=== PATIENT | female | born 1995 | race Caucasian/White ===

== ENCOUNTER 2018-07-13 08:49 | Observation (INO) | payer BC ==
[~2018-07-13] VITALS: Wt 72.7 kg
[2018-07-13] MEDS ORDERED: CONCERTA36 MG PO (09:07)
[2018-07-13 09:22] LABS: BASO # 0.1 (0.0-0.2); BASO % 0.6 % (0.0-2.0); EOS % 0.1 % (0-4.0); GRAN # 5.8 (1.4-6.5); GRAN % 69.5 % (42.2-75.2); HEMOGLOBIN 14.1 g/dl (12.5-16.0); LYMPH # 1.9 (1.2-3.4); LYMPH % 22.5 % (20.0-51.0); MEAN CELL VOLUME 88 fl (80.0-100.0); MEAN CORPUSCULAR HEMOGLOBIN 30 pg (27.0-31.0); MEAN CORPUSCULAR HGB CONC 34 g/dl (33.0-37.0); MEAN PLATELET VOLUME 10.2 fl (7.4-10.4); MONO # 0.6 (0.1-0.6); MONO % 7.1 % (1.7-9.3); PLATELET COUNT 241 K/mm3 (130-400); RED BLOOD COUNT 4.78 M/mm3 (4.10-5.30); REDCELL DISTRIBUTION WIDTH-CV 11.9 % (11.5-14.5)
[2018-07-13 09:32] LABS: ALBUMIN 4.8 gm/dL (3.5-5.0); BILIRUBIN,TOTAL 1.9 mg/dL (0.0-1.0); CALCIUM 9.8 mg/dL (8.4-10.2); CREATININE, serum 0.74 mg/dL (0.52-1.25); PHOSPHOROUS 1.2 mg/dL (2.5-4.5); POTASSIUM 3.5 mmol/L (3.4-5.0); TOTAL PROTEIN 8.2 gm/dL (6.4-8.2)
[2018-07-13 09:37] LABS: COLLECTION METHOD CLEAN CATCH
[2018-07-13 09:43] LABS: TROPONIN-I 0.029 ng/mL (0.000-0.034)
[2018-07-13 09:55] LABS: HYALINE CAST >12 /lpf; MUCOUS Present /lpf; PH 6 (5-8); URINE APPEARANCE Hazy; URINE BACTERIA Rare /hpf; URINE BILIRUBIN Negative (NEGATIVE); URINE BLOOD 2+ (NEGATIVE); URINE COLOR Yellow; URINE GLUCOSE Negative (NEGATIVE); URINE KETONE Trace (NEGATIVE); URINE LEUKOCYTE ESTERASE Negative (NEGATIVE); URINE NITRATE Negative (NEGATIVE); URINE PROTEIN(semi-quant) 2+ (NEGATIVE); URINE UROBILINOGEN Negative (NEGATIVE)
[2018-07-13 10:02] LABS: THYROID STIMULATING HORMONE 4.85 uIU/mL (0.465-4.680)
--- NOTE | 2018-07-13 15:53 | NUR ---
Patient arrived to floor at 1500. Alert, oriented, cooperative. Rates chest pain as a "1" at this time, described at "tightness."
[2018-07-13 16:00] VITALS: BP 125/75; PULSE 78; TEMP 98.8
[2018-07-13 16:06] VITALS: BP 125/75; PULSE 78; TEMP 98.8
--- NOTE | 2018-07-13 18:11 | NUR ---
Patient sitting up in bed eatting dinner at this time. Voices no needs or concerns. Continues to deny having pain and discomfort, including to chest.
[2018-07-13 19:03] VITALS: BP 134/74; PULSE 94; TEMP 98.4
--- NOTE | 2018-07-13 22:24 | NUR ---
Resting in bed with friends at bedside. Assessment complete. Alert and orientated. Lungs clear. Heart sounds normal. Pulses strong throughout. Reports IV in left AC painful. Site does not have an infiltration or phlebitis. Moved to left hand at patient request. Denies other needs at this time. Call light in reach.
[2018-07-13 23:48] VITALS: BP 130/76; PULSE 74; TEMP 98.8
[2018-07-14 03:49] VITALS: BP 118/68; PULSE 96; TEMP 97.2
--- NOTE | 2018-07-14 04:31 | NUR ---
Resting in bed with mother at bedside. denies needs. Call light in reach.
[2018-07-14 05:21] VITALS: BP 126/78; PULSE 84
--- NOTE | 2018-07-14 05:30 | NUR ---
Reports chest pain, 3/10 lower sternum. VS stable. No changes on telemetry. Keri notified if EKG wanted. No EKG at this time. Provided patient with PRN norco. Educated patient to inform if sx change or get worse. Denies other needs at this time. Will monitor.
[2018-07-14 06:17] LABS: BASO % 0.6 % (0.0-2.0); EOS # 0.1 (0.0-0.7); EOS % 0.9 % (0-4.0); GRAN # 3.5 (1.4-6.5); GRAN % 50.6 % (42.2-75.2); HEMATOCRIT 39.1 % (37.0-47.0); LYMPH # 2.6 (1.2-3.4); LYMPH % 38.5 % (20.0-51.0); MEAN CELL VOLUME 89 fl (80.0-100.0); MEAN CORPUSCULAR HEMOGLOBIN 30 pg (27.0-31.0); MEAN CORPUSCULAR HGB CONC 33 g/dl (33.0-37.0); MEAN PLATELET VOLUME 10.8 fl (7.4-10.4); MONO # 0.6 (0.1-0.6); MONO % 9.1 % (1.7-9.3); PLATELET COUNT 211 K/mm3 (130-400); RED BLOOD COUNT 4.41 M/mm3 (4.10-5.30); REDCELL DISTRIBUTION WIDTH-CV 11.8 % (11.5-14.5)
--- NOTE | 2018-07-14 06:28 | NUR ---
Resting in bed with mother at bedside. Reports norco improved chest pain. Otherwise uneventful night. Denies needs at this time.
[2018-07-14 06:31] LABS: BILIRUBIN,TOTAL 2.2 mg/dL (0.0-1.0); CALCIUM 8.6 mg/dL (8.4-10.2); CREATININE, serum 0.59 mg/dL (0.52-1.25); PHOSPHOROUS 3.9 mg/dL (2.5-4.5); POTASSIUM 3.2 mmol/L (3.4-5.0); TOTAL PROTEIN 6.9 gm/dL (6.4-8.2)
[2018-07-14 07:34] VITALS: BP 135/75; PULSE 90; TEMP 98.2
--- NOTE | 2018-07-14 10:28 | NUR ---
First visit from the circuit court judge. No needs right now.
--- NOTE | 2018-07-14 10:28 | NUR ---
Reported pain to be at a "2-3," described as tightness, but states that it is "ok." Denies having palpitations or feelings of heart pounding. Urine collected per orders. Denies having needs at this time. Sitting up in bed with mom at bedside.
[2018-07-14 10:34] LABS: TRICYCLIC ANTIDEPRESS URINE NEGATIVE
--- NOTE | 2018-07-14 13:30 | NUR ---
Patient discharged from hospital at this time to home. Mother with patient at time of discharge.
--- NOTE | 2018-07-14 13:34 | NUR ---
SW and SW student attended clinical rounding and met with patient to discuss discharge planning. Patients PCP is Dr Alfaro and she obtains her medications from [facility]. Patients mother was in the room with her. Patient is dc home today with no unmet discharge needs.
== END 2018-07-14 13:30 | disposition home or self-care (01) ==
LOC: COL.ER 08:49 → MEDICAL 14:16
PROVIDERS: Emergency Medicine; Physician Assistant; ADMIT Hospitalist
DX: R00.2 Palpitations (principal); R00.0 Tachycardia, unspecified; R07.9 Chest pain, unspecified; R79.89 Other specified abnormal findings of blood chemistry; E83.39 Other disorders of phosphorus metabolism; E87.6 Hypokalemia; R31.9 Hematuria, unspecified; F98.8 Other specified behavioral and emotional disorders with onset usually occurring in childhood and adolescence; E80.7 Disorder of bilirubin metabolism, unspecified; Z79.899 Other long term (current) drug therapy
CPT/HCPCS: G0378; J7030

== ENCOUNTER → 2018-08-09 | Outpatient (CLI) | payer BC ==
[~2018-08-09] MED LIST: CONCERTA36 MG PO
== END ==
LOC: BHSO 08:45
DX: F41.1 Generalized anxiety disorder (principal)

== ENCOUNTER → 2018-08-17 | Outpatient (CLI) | payer BC | LOC: BHSO 08:54 | DX: F41.0 Panic disorder [episodic paroxysmal anxiety] (principal) ==

== ENCOUNTER → 2018-08-24 | Outpatient (CLI) | payer BC | LOC: BHSO 08:58 | DX: F41.0 Panic disorder [episodic paroxysmal anxiety] (principal) ==

== ENCOUNTER → 2018-09-02 | Outpatient (CLI) | payer BC | LOC: BHSO 12:59 | DX: F41.0 Panic disorder [episodic paroxysmal anxiety] (principal) ==

== ENCOUNTER → 2018-09-07 | Outpatient (CLI) | payer BC | LOC: BHSO 09:59 | DX: F41.0 Panic disorder [episodic paroxysmal anxiety] (principal) ==

== ENCOUNTER → 2018-09-14 | Outpatient (CLI) | payer BC | LOC: BHSO 09:58 | DX: F41.1 Generalized anxiety disorder (principal) ==

== ENCOUNTER → 2018-09-21 | Outpatient (CLI) | payer BC | LOC: BHSO 09:52 | DX: F41.0 Panic disorder [episodic paroxysmal anxiety] (principal) ==

== ENCOUNTER → 2018-10-05 | Outpatient (CLI) | payer BC | LOC: BHSO 10:01 | DX: F41.0 Panic disorder [episodic paroxysmal anxiety] (principal) ==

== ENCOUNTER → 2018-10-20 | Outpatient (CLI) | payer BC | LOC: BHSO 10:01 | DX: F41.0 Panic disorder [episodic paroxysmal anxiety] (principal) ==

== ENCOUNTER → 2018-11-03 | Outpatient (CLI) | payer BC | LOC: BHSO 13:09 | DX: F40.10 Social phobia, unspecified (principal) ==